=== PATIENT | male | born 1935 | race Caucasian/White ===

== ENCOUNTER 2018-10-14 01:43 | Emergency (ER) | payer SELFPAY ==
[~2018-10-14] VITALS: Ht 165.1 cm; Wt 60.0 kg
[2018-10-14 01:46] VITALS: Ht 165.1 cm; Wt 60.0 kg
--- NOTE | 2018-10-14 05:08 | ERD ---
ER Documentation Chief Complaint Chief Complaint ETOH X TODAY. SLURRED SPEECH, INCOHERENT. HPI Is a 6-year-old male comes in admits to drinking alcohol today he has been in by rescue. Denies fevers chills nausea vomiting. Denies any other current complaints. He admits to drinking alcohol. ROS All systems reviewed and are negative except as per history of present illness. Allergies Allergies: Coded Allergies: No Known Allergy (Unverified , 10/14/18) PMhx/Soc Hx Alcohol Use: Yes Smoking Status: Unknown if ever smoked Physical Exam Vitals Vital Signs Date Temp Pulse Resp B/P (MAP) Pulse Ox O2 O2 Flow FiO2 Time Delivery Rate 10/14/18 56 16 125/56 96 Room Air 04:47 (79) 10/14/18 97.4 88 12 118/67 94 01:46 (84) Physical Exam Const: No acute distress Head: Atraumatic Eyes: Normal Conjunctiva ENT: Normal External Ears, Nose and Mouth. Neck: Full range of motion. No meningismus. Resp: Clear to auscultation bilaterally Cardio: Regular rate and rhythm, no murmurs Abd: Soft, non tender, non distended. Normal bowel sounds Skin: No petechiae or rashes Back: No midline or flank tenderness Ext: No cyanosis, or edema Neur: Awake and alert Psych: Normal Mood and Affect Procedures/MDM Medical decision m[age]-year-old male here for alcohol intoxication. Will be allowed to sober up and stable for outpatient management. Patient be discharged home once he is able to pass a road test. He has been advised to stop drinking. Departure Diagnosis: Primary Impression: Alcoholic intoxication Complication of substance-induced condition: uncomplicated Qualified Codes: F10.920 - Alcohol use, unspecified with intoxication, uncomplicated Condition: Stable Patient Instructions: Alcohol Intoxication HILARIO YU Oct 14, 2018 05:08
[2018-10-14 08:38] VITALS: BP 118/56; PULSE 60; RESP 18
== END 2018-10-14 08:40 | disposition home or self-care (01) ==
LOC: E/R 01:43 → MERGE 01:43 → EDBD 01:43 → E/R 08:40
DX: F10.920 Alcohol use, unspecified with intoxication, uncomplicated (principal); R40.2142 Coma scale, eyes open, spontaneous, at arrival to emergency department; R40.2342 Coma scale, best motor response, flexion withdrawal, at arrival to emergency department; R40.2212 Coma scale, best verbal response, none, at arrival to emergency department
CPT/HCPCS: 70450